=== PATIENT | female | born 2000 | race Two or more races ===

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

== ENCOUNTER → 2020-01-16 | Outpatient (CLI) | payer BC ==
[2020-01-16 11:36] LABS: Basophils # (auto) 0 10 ^3/uL (0-0.2); Basophils % (auto) 0.5 % (0.0-2.0); Eosinophils # (auto) 0 10 ^3/uL (0-0.8); Lymphocytes # (auto) 1.4 10 ^3/uL (0.4-5.4); Monocytes # (auto) 0.3 10 ^3/uL (0-1.3); Neutrophils # (auto) 1.8 10 ^3/uL (1.6-8.6); White Blood Cell 3.6 10^3/uL (4.4-10.8)
[2020-01-16 11:38] LABS: Eosinophils % (auto) 0.6 % (0.0-7.0); Hematocrit 38.4 % (36.0-46.0); Hemoglobin 12.4 g/dL (12.2-16.2); Lymphocytes % (auto) 39.5 % (10.0-50.0); Mean Corpuscular Hemoglobin 25.1 pg (28.0-32.0); Mean Corpuscular Hgb Conc. 32.4 g/dL (32.0-36.0); Mean Corpuscular Volume 77.5 fL (80.0-100.0); Monocytes % (auto) 9.6 % (0.0-12.0); Neutrophils % (auto) 49.8 % (37.0-80.0); Nucleated Red Blood Cells % 0.1 %; Platelet Count (auto) 229 10^3/uL (140-450); Red Blood Cells 4.96 10^6/uL (4.0-5.20); Red Cell Distribution Width 16.8 % (11.8-14.3)
[2020-01-16 12:18] LABS: Alanine Aminotransferase 203 U/L (13-56); Aspartate Aminotransferase 96 U/L (15-37)
[2020-01-18 09:23] LABS: Hepatitis B Surface Antibody Positive
[2020-01-18 09:57] LABS: Hepatitis A Total Antibody Positive
[2020-01-18 11:02] LABS: Hepatitis A Ab IgM Negative
[2020-01-18 11:04] LABS: Hepatitis B Core Total AB Negative; Hepatitis B Surface Antigen Negative (Negative); Hepatitis C Antibody Negative (Negative)
[2020-01-18 11:05] LABS: Hepatitis B Core IgM Negative
== END | disposition home or self-care (01) ==
LOC: LAB 11:02
PROVIDERS: ATTEND Internal Medicine
DX: D64.9 Anemia, unspecified (principal); R79.89 Other specified abnormal findings of blood chemistry
CPT/HCPCS: 36415; 83540; 84450; 84460; 85025; 86704; 86705; 86706; 86708; 86709; 86803; 87340

== ENCOUNTER → 2020-01-30 | Outpatient (CLI) | payer BC ==
[2020-01-30 16:34] LABS: Basophils # (auto) 0 10 ^3/uL (0-0.2); Red Cell Distribution Width 16.8 % (11.8-14.3); White Blood Cell 5.5 10^3/uL (4.4-10.8)
[2020-01-30 16:36] LABS: Basophils % (auto) 0.3 % (0.0-2.0); Eosinophils # (auto) 0.1 10 ^3/uL (0-0.8); Eosinophils % (auto) 1.1 % (0.0-7.0); Hematocrit 37.1 % (36.0-46.0); Hemoglobin 12.1 g/dL (12.2-16.2); Lymphocytes # (auto) 2.1 10 ^3/uL (0.4-5.4); Lymphocytes % (auto) 37.9 % (10.0-50.0); Mean Corpuscular Hemoglobin 25.4 pg (28.0-32.0); Mean Corpuscular Hgb Conc. 32.7 g/dL (32.0-36.0); Mean Corpuscular Volume 77.8 fL (80.0-100.0); Monocytes # (auto) 0.5 10 ^3/uL (0-1.3); Neutrophils # (auto) 2.8 10 ^3/uL (1.6-8.6); Neutrophils % (auto) 51.7 % (37.0-80.0); Platelet Count (auto) 240 10^3/uL (140-450); Red Blood Cells 4.77 10^6/uL (4.0-5.20)
[2020-01-30 16:59] LABS: Albumin 3.6 g/dL (3.4-5.0); BUN/Creatinine Ratio 17.5
[2020-01-30 17:02] LABS: Bilirubin, Total 0.3 mg/dL (0.2-1.0); Total Protein 7.5 g/dL (6.4-8.2)
== END | disposition home or self-care (01) ==
LOC: LAB 16:19
PROVIDERS: ATTEND Internal Medicine
DX: D72.819 Decreased white blood cell count, unspecified (principal)
CPT/HCPCS: 36415; 80053; 82150; 85025

== ENCOUNTER → 2020-01-31 | Outpatient (CLI) | payer BC | END | disposition home or self-care (01) | LOC: LAB 10:38 | PROVIDERS: ATTEND Nurse Practitioner Family | DX: Z11.59 Encounter for screening for other viral diseases (principal); Z20.828 Contact with and (suspected) exposure to other viral communicable diseases | CPT/HCPCS: 87635 ==

== ENCOUNTER → 2020-04-12 | Outpatient (CLI) | payer OTHER | END | disposition home or self-care (01) | LOC: LAB 17:10 | PROVIDERS: ATTEND Internal Medicine | DX: Z20.828 Contact with and (suspected) exposure to other viral communicable diseases (principal) | CPT/HCPCS: C9803; U0003 ==

== ENCOUNTER → 2020-10-11 | Outpatient (CLI) | payer BC ==
[2020-10-11 11:05] LABS: Basophils # (auto) 0 10 ^3/uL (0-0.2); Basophils % (auto) 0.9 % (0.0-2.0); Eosinophils # (auto) 0 10 ^3/uL (0-0.8); Eosinophils % (auto) 0.7 % (0.0-7.0); Hematocrit 37.8 % (36.0-46.0); Hemoglobin 12.8 g/dL (12.2-16.2); Lymphocytes # (auto) 1.9 10 ^3/uL (0.4-5.4); Lymphocytes % (auto) 38.9 % (10.0-50.0); Mean Corpuscular Hemoglobin 27.4 pg (28.0-32.0); Mean Corpuscular Hgb Conc. 33.9 g/dL (32.0-36.0); Mean Corpuscular Volume 80.9 fL (80.0-100.0); Monocytes # (auto) 0.5 10 ^3/uL (0-1.3); Monocytes % (auto) 10.7 % (0.0-12.0); Neutrophils # (auto) 2.4 10 ^3/uL (1.6-8.6); Neutrophils % (auto) 48.8 % (37.0-80.0); Nucleated Red Blood Cells % 0.3 %; Platelet Count (auto) 265 10^3/uL (140-450); Red Blood Cells 4.67 10^6/uL (4.0-5.20); Red Cell Distribution Width 13.9 % (11.8-14.3); White Blood Cell 4.9 10^3/uL (4.4-10.8)
[2020-10-11 11:06] LABS: Urine Bacteria NONE SEEN /hpf (None Seen); Urine Blood Negative /uL (Negative); Urine Hyaline Cast FEW /lpf (0 - 2); Urine Mucus FEW (None Seen); Urine WBC 2 /hpf (0 - 5)
[2020-10-11 15:51] LABS: Potassium 3.9 mmol/L (3.5-5.1)
[2020-10-11 16:15] LABS: Albumin 4.1 g/dL (3.4-5.0); Bilirubin, Total 0.6 mg/dL (0.2-1.0); Calcium 9.2 mg/dL (8.5-10.1)
== END | disposition home or self-care (01) ==
LOC: LAB 09:13
PROVIDERS: ATTEND Internal Medicine
DX: E83.51 Hypocalcemia (principal); R79.89 Other specified abnormal findings of blood chemistry; N93.0 Postcoital and contact bleeding
CPT/HCPCS: 36415; 80053; 80061; 81001; 84439; 84443; 85025; 85652; 87070